=== PATIENT | female | born 1945 | race Caucasian/White ===

== ENCOUNTER 2017-04-13 12:19 | Outpatient (RCR) | payer MEDICARE ==
[~2017-04-13 12:19] MED LIST: ASPIR 8181 MG PO; CALCIUM 600 +1 EACH PO; COLLAGENASE OINTMENT 30 GM TUBE ONE; HUMULIN 70100 UNIT/1; LASIX40 MG PO; LIDOCAINE VISC 2% SOLN 15 ML UDC ONE; LISINOPRIL10 MG PO; LUMIGAN2.5 M1 OP; METFORMIN HCL850 MG PO; NORVASC10 MG PO; PLAVIX75 MG PO; PRAVASTATIN SOD40 MG PO; PROPRANOLOL HCL80 MG PO; UNISOM SLEEP AI25 MG PO; VITAMIN D2000 UNIT PO
[2017-04-20] MEDS ORDERED: COLLAGENASE OINTMENT 30 GM TUBE ONE (16:51)
== END 2017-04-26 ==
LOC: WCC 12:19
PROVIDERS: ATTEND Podiatrist Foot & Ankle Surgery
DX: E11.621 Type 2 diabetes mellitus with foot ulcer (principal); E11.21 Type 2 diabetes mellitus with diabetic nephropathy; L97.423 Non-pressure chronic ulcer of left heel and midfoot with necrosis of muscle; I10 Essential (primary) hypertension; N32.89 Other specified disorders of bladder; Z01.810 Encounter for preprocedural cardiovascular examination; Z01.811 Encounter for preprocedural respiratory examination
CPT/HCPCS: 11042; 97602 ×2; G0463

== ENCOUNTER 2017-06-08 12:20 | Outpatient (RCR) | payer MEDICARE ==
[~2017-06-08 12:20] MED LIST changes: -COLLAGENASE OINTMENT 30 GM TUBE ONE; -LIDOCAINE VISC 2% SOLN 15 ML UDC ONE
[2017-06-08] MEDS ORDERED: LIDOCAINE VISC 2% SOLN 15 ML UDC ONE (14:07)
== END 2017-06-26 ==
LOC: WCC 12:20
PROVIDERS: ATTEND Podiatrist Foot & Ankle Surgery
DX: E11.21 Type 2 diabetes mellitus with diabetic nephropathy (principal); E11.621 Type 2 diabetes mellitus with foot ulcer; I10 Essential (primary) hypertension; N32.89 Other specified disorders of bladder; Z01.810 Encounter for preprocedural cardiovascular examination; Z01.811 Encounter for preprocedural respiratory examination; Z74.01 Bed confinement status
CPT/HCPCS: G0463 ×2

== ENCOUNTER 2017-09-07 12:40 | Outpatient (RCR) | payer MEDICARE | END 2017-09-24 | LOC: WCC 12:40 | PROVIDERS: ATTEND Podiatrist Foot & Ankle Surgery | DX: E11.21 Type 2 diabetes mellitus with diabetic nephropathy (principal); E11.621 Type 2 diabetes mellitus with foot ulcer; L97.821 Non-pressure chronic ulcer of other part of left lower leg limited to breakdown of skin; L97.429 Non-pressure chronic ulcer of left heel and midfoot with unspecified severity; I87.312 Chronic venous hypertension (idiopathic) with ulcer of left lower extremity; I10 Essential (primary) hypertension; N32.89 Other specified disorders of bladder; Z01.810 Encounter for preprocedural cardiovascular examination; Z01.811 Encounter for preprocedural respiratory examination; Z74.01 Bed confinement status ==